=== PATIENT | male | born 1960 | race Caucasian/White ===

== ENCOUNTER 2017-01-21 18:19 | Emergency (ER) | payer MEDICAID ==
[~2017-01-21] VITALS: Ht 182.9 cm; Wt 81.0 kg
[2017-01-21 18:31] VITALS: BP 106/70
== END 2017-01-21 20:43 | disposition left against medical advice (07) ==
LOC: EMS 18:23
DX: R07.89 Other chest pain (principal); Z87.891 Personal history of nicotine dependence; Z53.21 Procedure and treatment not carried out due to patient leaving prior to being seen by health care provider
CPT/HCPCS: 93005

== ENCOUNTER → 2017-01-21 | Emergency (ER) | payer MEDICAID ==
[~2017-01-21] VITALS: Ht 182.9 cm; Wt 81.0 kg
[~2017-01-21] MED LIST: BUPR150T3 PO
[2017-01-21 18:12] VITALS: BP 106/70
== END | disposition home or self-care (01) ==
LOC: BV PSY EVL 17:40
DX: F99 Mental disorder, not otherwise specified (principal); Z53.21 Procedure and treatment not carried out due to patient leaving prior to being seen by health care provider

== ENCOUNTER 2017-01-23 11:54 | Inpatient (IN) | payer MEDICAID ==
[~2017-01-23] VITALS: Ht 182.9 cm; Wt 82.2 kg
[2017-01-23 16:30] VITALS: BP 147/85
[2017-01-23] MEDS ORDERED: LORazepam 2 MG TABLET PO PRN ×2 (17:15→18:15)
[2017-01-23] MEDS ORDERED: CYANOCOBALAMIN 1,000 MCG/ML VIAL IM ONE (18:15)
[2017-01-23 19:23] VITALS: BP 162/85
[2017-01-24] VITALS (7 sets, daily range): BP systolic 100–139; BP diastolic 55–89
[2017-01-24] MEDS: LORazepam 2 MG TABLET PO PRN (07:04)
[2017-01-24 07:52] LABS: BASOPHILS # (AUTO) 0.02 K/uL (0.00-0.20); BASOPHILS % (AUTO) 0.4 % (0.0-2.0); EOSINOPHILS # (AUTO) 0.32 K/uL (0.00-0.70); EOSINOPHILS % (AUTO) 5.23 % (1.0-6.0); HEMOGLOBIN 13.2 g/dL (13.5-17.5); LYMPHOCYTES # (AUTO) 1.9 K/uL (1.0-4.8); LYMPHOCYTES % (AUTO) 30.3 % (22.0-44.0); MEAN CORPUSCULAR HEMOGLOBIN 30.2 pg (26.0-34.0); MEAN CORPUSCULAR HGB CONC 33.9 G/dL (31.0-37.0); MEAN CORPUSCULAR VOLUME 89 fL (80-100); MONOCYTES # (AUTO) 0.5 K/uL (0.1-1.0); MONOCYTES % (AUTO) 7.9 % (2.0-9.0); NEUTROPHILS # (AUTO) 3.5 K/uL (1.8-7.7); NEUTROPHILS % (AUTO) 56.2 % (40.0-70.0); PLATELET COUNT (AUTO) 274 K/uL (150-450); RED BLOOD CELL COUNT(AUTO) 4.38 MIL/uL (4.50-5.90); WHITE BLOOD COUNT (AUTO) 6.2 K/uL (4.5-11.0)
[2017-01-24 08:02] LABS: HEMOGLOBIN A1C 5.1 % (4.5-6.2)
[2017-01-24 08:25] LABS: ALANINE AMINOTRANSFERASE 37 U/L (12-78); ALBUMIN 2.8 g/dL (3.4-5.0); ANION GAP 7 mmol/L (8-16); ASPARTATE AMINOTRANSFERASE 32 U/L (15-37); BILIRUBIN,TOTAL 0.9 mg/dL (0.1-1.0); CALCIUM, TOTAL 7.8 mg/dL (8.8-10.5); CARBON DIOXIDE 32 mmol/L (22-29); CHLORIDE 105 mmol/L (98-107); CHOL/HDL RATIO 2.8 (4.2-7.3); CREATININE 0.77 mg/dL (0.60-1.30); GLOMERULAR FILTR. RATE CALC > 60 mL/min (>60); POTASSIUM 3.4 mmol/L (3.5-5.1); SODIUM SERUM 144 mmol/L (136-145); UREA NITROGEN, BLOOD 18 mg/dL (7-18)
[2017-01-24] MEDS: MULTIVITAMINS WITH MINERALS, THERAPEUTIC TABLET PO SCH (09:11)
[2017-01-24] MEDS: FOLIC ACID 1 MG TABLET PO SCH (09:12)
[2017-01-24] MEDS: LORazepam 2 MG TABLET PO SCH ×5 (09:12→21:14)
[2017-01-24] MEDS: THIAMINE HCL 100 MG TABLET PO SCH (09:12)
[2017-01-24] MEDS ORDERED: POTASSIUM CHLORIDE 20 MEQ ER TABLET PO ONE (09:45)
[2017-01-24] MEDS ORDERED: CloNIDine HCL 0.1 MG TABLET PO PRN (09:45)
[2017-01-24] MEDS: ZOLPIDEM TARTRATE 10 MG TABLET PO PRN (21:14)
[2017-01-25 06:27] VITALS: BP 126/75
[2017-01-25 08:00] VITALS: BP 117/73
[2017-01-25 08:42] VITALS: BP 117/73
[2017-01-25] MEDS: PANTOPRAZOLE SODIUM 40 MG DR TABLET PO SCH (09:13)
[2017-01-25] MEDS: LORazepam 2 MG TABLET PO SCH ×4 (09:13→20:43)
[2017-01-25] MEDS: MULTIVITAMINS WITH MINERALS, THERAPEUTIC TABLET PO SCH (09:13)
[2017-01-25] MEDS: THIAMINE HCL 100 MG TABLET PO SCH (09:13)
[2017-01-25] MEDS: FOLIC ACID 1 MG TABLET PO SCH (09:13)
[2017-01-25 16:00] VITALS: BP 121/66
[2017-01-25 16:10] VITALS: BP 121/66
[2017-01-25] MEDS: ZOLPIDEM TARTRATE 10 MG TABLET PO PRN (20:43)
[2017-01-25] MEDS: LORazepam 2 MG TABLET PO PRN (23:29)
[2017-01-26] VITALS (7 sets, daily range): BP systolic 118–142; BP diastolic 69–87
[2017-01-26] MEDS ORDERED: LORazepam 1 MG TABLET PO PRN (07:00)
[2017-01-26 08:35] LABS: CHOL/HDL RATIO 2.7 (4.2-7.3); THYROID STIMULATING HORMONE 4.27 uIU/mL (0.36-3.74)
[2017-01-26] MEDS: THIAMINE HCL 100 MG TABLET PO SCH (08:38)
[2017-01-26] MEDS: MULTIVITAMINS WITH MINERALS, THERAPEUTIC TABLET PO SCH (08:38)
[2017-01-26] MEDS: LORazepam 1 MG TABLET PO SCH ×4 (08:38→22:21)
[2017-01-26] MEDS: FOLIC ACID 1 MG TABLET PO SCH (08:38)
[2017-01-26] MEDS: PANTOPRAZOLE SODIUM 40 MG DR TABLET PO SCH (08:38)
[2017-01-26] MEDS: ESCITALOPRAM OXALATE 10 MG TABLET PO SCH (11:17)
[2017-01-26] MEDS ORDERED: HYDROCODONE/ACETAMINOPHEN 5-325 MG TABLET PO ONE (16:30)
[2017-01-26] MEDS ORDERED: ESCI10TA PO (18:51)
[2017-01-27 06:24] VITALS: BP 125/84
[2017-01-27 06:25] VITALS: BP 125/84
[2017-01-27] MEDS ORDERED: LORazepam 1 MG TABLET PO PRN (07:00)
[2017-01-27 07:40] LABS: BASOPHILS % (AUTO) 0.4 % (0.0-2.0); EOSINOPHILS % (AUTO) 3.8 % (1.0-6.0); HEMATOCRIT 44.8 % (41-53); HEMOGLOBIN 14.6 g/dL (13.5-17.5); LYMPHOCYTES # (AUTO) 2.8 K/uL (1.0-4.8); LYMPHOCYTES % (AUTO) 32.5 % (22.0-44.0); MEAN CORPUSCULAR HEMOGLOBIN 29.4 pg (26.0-34.0); MEAN CORPUSCULAR HGB CONC 32.6 G/dL (31.0-37.0); MEAN CORPUSCULAR VOLUME 90 fL (80-100); MONOCYTES # (AUTO) 0.6 K/uL (0.1-1.0); MONOCYTES % (AUTO) 7.4 % (2.0-9.0); NEUTROPHILS # (AUTO) 4.8 K/uL (1.8-7.7); NEUTROPHILS % (AUTO) 55.9 % (40.0-70.0); PLATELET COUNT (AUTO) 303 K/uL (150-450); RED BLOOD CELL COUNT(AUTO) 4.97 MIL/uL (4.50-5.90); RED CELL DISTRIBUTION WIDTH 12.7 % (11.5-14.5); WHITE BLOOD COUNT (AUTO) 8.6 K/uL (4.5-11.0)
[2017-01-27 08:00] VITALS: BP 103/72
[2017-01-27 08:12] LABS: ALANINE AMINOTRANSFERASE 47 U/L (12-78); ALBUMIN 3.7 g/dL (3.4-5.0); ANION GAP 8 mmol/L (8-16); ASPARTATE AMINOTRANSFERASE 24 U/L (15-37); BILIRUBIN,TOTAL 0.7 mg/dL (0.1-1.0); CALCIUM, TOTAL 8.4 mg/dL (8.8-10.5); CARBON DIOXIDE 29 mmol/L (22-29); CHLORIDE 100 mmol/L (98-107); CREATININE 0.94 mg/dL (0.60-1.30); GLOMERULAR FILTR. RATE CALC > 60 mL/min (>60); POTASSIUM 4.2 mmol/L (3.5-5.1); SODIUM SERUM 137 mmol/L (136-145); THYROID STIMULATING HORMONE 3.81 uIU/mL (0.36-3.74); TOTAL PROTEIN, SERUM 7.1 g/dL (6.4-8.2); UREA NITROGEN, BLOOD 14 mg/dL (7-18)
[2017-01-27] MEDS: MULTIVITAMINS WITH MINERALS, THERAPEUTIC TABLET PO SCH (08:25)
[2017-01-27] MEDS: THIAMINE HCL 100 MG TABLET PO SCH (08:25)
[2017-01-27] MEDS: PANTOPRAZOLE SODIUM 40 MG DR TABLET PO SCH (08:25)
[2017-01-27] MEDS: FOLIC ACID 1 MG TABLET PO SCH (08:25)
[2017-01-27] MEDS: ESCITALOPRAM OXALATE 10 MG TABLET PO SCH (08:25)
[2017-01-27 09:21] VITALS: BP 103/72
[2017-01-27 09:25] LABS: APPEARANCE,URINE CLEAR (CLEAR); GLUCOSE, URINE (UA) NEGATIVE (NEGATIVE); KETONES,URINE NEGATIVE (NEGATIVE); LEUKOCYTE ESTERASE ,URINE NEGATIVE (NEGATIVE); OCCULT BLOOD,URINE NEGATIVE (NEGATIVE); PROTEIN,URINE NEGATIVE (NEGATIVE)
[2017-01-27 09:26] LABS: ADD UA MICROSCOPIC NO
[2017-01-27 12:20] LABS: HEPATITIS Bs ANTIGEN SCREEN P Negative (Negative); HEPATITIS C AB SCREEN <0.1 s/co ratio (0.0-0.9)
[2017-01-27 16:06] VITALS: BP 114/69
[2017-01-27 16:56] VITALS: BP 114/69
[2017-01-27] MEDS: ZOLPIDEM TARTRATE 10 MG TABLET PO PRN (20:35)
[2017-01-28 01:37] VITALS: BP_SYST 118; BP_SYST 143; BP_DIAS 82; BP_DIAS 87
[2017-01-28 07:02] VITALS: BP 118/82
[2017-01-28] MEDS: FOLIC ACID 1 MG TABLET PO SCH (08:17)
[2017-01-28] MEDS: MULTIVITAMINS WITH MINERALS, THERAPEUTIC TABLET PO SCH (08:17)
[2017-01-28] MEDS: THIAMINE HCL 100 MG TABLET PO SCH (08:17)
[2017-01-28] MEDS: ESCITALOPRAM OXALATE 10 MG TABLET PO SCH (08:17)
[2017-01-28] MEDS: PANTOPRAZOLE SODIUM 40 MG DR TABLET PO SCH (08:17)
[2017-01-28 08:18] LABS: THYROID STIMULATING HORMONE 1.97 uIU/mL (0.36-3.74)
[2017-01-28 08:40] VITALS: BP 128/64
[2017-01-28 14:46] VITALS: BP 128/84
[2017-01-28] MEDS: HYDROCODONE/ACETAMINOPHEN 5-325 MG TABLET PO PRN (14:48)
[2017-01-28 16:08] VITALS: BP 122/74
[2017-01-28] MEDS: ZOLPIDEM TARTRATE 10 MG TABLET PO PRN (20:40)
[2017-01-29 05:50] VITALS: BP_SYST 125; BP_SYST 135; BP_DIAS 75; BP_DIAS 95
[2017-01-29 08:07] VITALS: BP 116/66
[2017-01-29] MEDS: PANTOPRAZOLE SODIUM 40 MG DR TABLET PO SCH (08:56)
[2017-01-29] MEDS: ESCITALOPRAM OXALATE 10 MG TABLET PO SCH (08:56)
[2017-01-29] MEDS: THIAMINE HCL 100 MG TABLET PO SCH (08:56)
[2017-01-29] MEDS: FOLIC ACID 1 MG TABLET PO SCH (08:56)
[2017-01-29] MEDS: MULTIVITAMINS WITH MINERALS, THERAPEUTIC TABLET PO SCH (08:56)
[2017-01-29 16:15] VITALS: BP 130/68
[2017-01-29] MEDS: HYDROCODONE/ACETAMINOPHEN 5-325 MG TABLET PO PRN (16:18)
[2017-01-30 01:30] VITALS: BP 125/74
[2017-01-30] MEDS ORDERED: PANT40TA25 PO (08:22)
[2017-01-30] MEDS: THIAMINE HCL 100 MG TABLET PO SCH (08:38)
[2017-01-30] MEDS: FOLIC ACID 1 MG TABLET PO SCH (08:38)
[2017-01-30] MEDS: PANTOPRAZOLE SODIUM 40 MG DR TABLET PO SCH (08:38)
[2017-01-30] MEDS: MULTIVITAMINS WITH MINERALS, THERAPEUTIC TABLET PO SCH (08:38)
[2017-01-30] MEDS: ESCITALOPRAM OXALATE 10 MG TABLET PO SCH (08:38)
[2017-01-30 09:14] VITALS: BP 147/79
== END 2017-01-30 09:55 | disposition home or self-care (01) | DRG 751 ==
LOC: B3A 17:05 → EDSTATUS 17:11 → B2S 01-29 18:35
DX: F33.2 Major depressive disorder, recurrent severe without psychotic features (principal); R45.851 Suicidal ideations; D64.9 Anemia, unspecified; E87.6 Hypokalemia; C44.91 Basal cell carcinoma of skin, unspecified; F10.10 Alcohol abuse, uncomplicated; N43.3 Hydrocele, unspecified; Z79.899 Other long term (current) drug therapy; Z59.0 Homelessness; Z82.5 Family history of asthma and other chronic lower respiratory diseases; Z80.1 Family history of malignant neoplasm of trachea, bronchus and lung; Z82.3 Family history of stroke
CPT/HCPCS: 80074; 82306; 82607; 82746; 83036; 84439; 84443; 87081; J3420

== ENCOUNTER 2017-01-26 18:20 | Emergency (ER) | payer MEDICAID, OTHER ==
[~2017-01-26] VITALS: Ht 185.4 cm; Wt 84.0 kg
[2017-01-26] MEDS ORDERED: ESCI10TA PO (18:51)
[2017-01-26 19:30] LABS: BASOPHILS % (AUTO) 0.6 % (0.0-2.0); EOSINOPHILS % (AUTO) 3.9 % (1.0-6.0); HEMATOCRIT 43.9 % (41-53); HEMOGLOBIN 14.2 g/dL (13.5-17.5); LYMPHOCYTES # (AUTO) 2.3 K/uL (1.0-4.8); LYMPHOCYTES % (AUTO) 29.8 % (22.0-44.0); MEAN CORPUSCULAR HEMOGLOBIN 28.9 pg (26.0-34.0); MEAN CORPUSCULAR HGB CONC 32.4 G/dL (31.0-37.0); MEAN CORPUSCULAR VOLUME 89 fL (80-100); MONOCYTES # (AUTO) 0.6 K/uL (0.1-1.0); NEUTROPHILS # (AUTO) 4.5 K/uL (1.8-7.7); NEUTROPHILS % (AUTO) 57.7 % (40.0-70.0); PLATELET COUNT (AUTO) 319 K/uL (150-450); RED BLOOD CELL COUNT(AUTO) 4.93 MIL/uL (4.50-5.90); RED CELL DISTRIBUTION WIDTH 12.5 % (11.5-14.5); WHITE BLOOD COUNT (AUTO) 7.8 K/uL (4.5-11.0)
[2017-01-26 19:35] LABS: ANION GAP 9 mmol/L (8-16); CALCIUM, TOTAL 8.1 mg/dL (8.8-10.5); CARBON DIOXIDE 28 mmol/L (22-29); CHLORIDE 100 mmol/L (98-107); CREATININE 0.85 mg/dL (0.60-1.30); GLOMERULAR FILTR. RATE CALC > 60 mL/min (>60); POTASSIUM 4.5 mmol/L (3.5-5.1); SODIUM SERUM 137 mmol/L (136-145); UREA NITROGEN, BLOOD 14 mg/dL (7-18)
[2017-01-26 19:38] LABS: ALANINE AMINOTRANSFERASE 48 U/L (12-78); ALBUMIN 3.4 g/dL (3.4-5.0); ASPARTATE AMINOTRANSFERASE 24 U/L (15-37); BILIRUBIN,TOTAL 0.4 mg/dL (0.1-1.0); TOTAL PROTEIN, SERUM 7.3 g/dL (6.4-8.2)
[2017-01-26 21:03] LABS: ADD UA MICROSCOPIC NO; APPEARANCE,URINE CLEAR (CLEAR); GLUCOSE, URINE (UA) NEGATIVE (NEGATIVE); KETONES,URINE NEGATIVE (NEGATIVE); LEUKOCYTE ESTERASE ,URINE NEGATIVE (NEGATIVE); OCCULT BLOOD,URINE NEGATIVE (NEGATIVE); PROTEIN,URINE NEGATIVE (NEGATIVE)
[2017-01-26] MEDS ORDERED: HYDROCODONE/ACETAMINOPHEN 5-325 MG TABLET PO ONE (21:15)
[2017-01-26 21:33] VITALS: BP 129/73
== END 2017-01-26 21:52 | disposition home or self-care (01) ==
LOC: EMS 18:22
DX: N43.3 Hydrocele, unspecified (principal); F17.210 Nicotine dependence, cigarettes, uncomplicated; L72.9 Follicular cyst of the skin and subcutaneous tissue, unspecified
CPT/HCPCS: 76870; 99285; 99406

== ENCOUNTER 2017-05-09 15:58 | Inpatient (IN) | payer MEDICAID, OTHER ==
[~2017-05-09] VITALS: Ht 182.9 cm; Wt 88.9 kg
[~2017-05-09 15:58] MED LIST changes: -BUPR150T3 PO; +ESCI10TA PO; +PANT40TA25 PO
[2017-05-09] MEDS ORDERED: HALO5 PO (17:05)
[2017-05-09] MEDS ORDERED: CITA10TA68 PO (17:05)
[2017-05-09] MEDS ORDERED: RISP1 PO (17:05)
[2017-05-09 17:17] LABS: BASOPHILS % (AUTO) 0.4 % (0.0-2.0); EOSINOPHILS % (AUTO) 1.2 % (1.0-6.0); HEMATOCRIT 42.8 % (41-53); HEMOGLOBIN 14.6 g/dL (13.5-17.5); LYMPHOCYTES # (AUTO) 1.9 K/uL (1.0-4.8); MEAN CORPUSCULAR HEMOGLOBIN 29.8 pg (26.0-34.0); MEAN CORPUSCULAR HGB CONC 34.2 G/dL (31.0-37.0); MEAN CORPUSCULAR VOLUME 87 fL (80-100); MONOCYTES # (AUTO) 0.6 K/uL (0.1-1.0); MONOCYTES % (AUTO) 5.8 % (2.0-9.0); NEUTROPHILS # (AUTO) 7.9 K/uL (1.8-7.7); NEUTROPHILS % (AUTO) 74.6 % (40.0-70.0); PLATELET COUNT (AUTO) 354 K/uL (150-450); RED BLOOD CELL COUNT(AUTO) 4.91 MIL/uL (4.50-5.90); RED CELL DISTRIBUTION WIDTH 13.6 % (11.5-14.5); WHITE BLOOD COUNT (AUTO) 10.6 K/uL (4.5-11.0)
[2017-05-09] MEDS ORDERED: HALOPERIDOL 5 MG TABLET PO PRN (17:30)
[2017-05-09 17:40] LABS: ANION GAP 16 mmol/L (8-16); CALCIUM, TOTAL 8.5 mg/dL (8.8-10.5); CARBON DIOXIDE 24 mmol/L (22-29); CHLORIDE 102 mmol/L (98-107); GLOMERULAR FILTR. RATE CALC > 60 mL/min (>60); POTASSIUM 3.8 mmol/L (3.5-5.1); SODIUM SERUM 142 mmol/L (136-145); UREA NITROGEN, BLOOD 15 mg/dL (7-18)
[2017-05-09 17:45] LABS: ALANINE AMINOTRANSFERASE 34 U/L (12-78); ALBUMIN 3.9 g/dL (3.4-5.0); ASPARTATE AMINOTRANSFERASE 40 U/L (15-37); BILIRUBIN,TOTAL 0.9 mg/dL (0.1-1.0); TOTAL PROTEIN, SERUM 7.5 g/dL (6.4-8.2)
[2017-05-09 19:02] LABS: GLUCOSE,POINT OF CARE 97 MG/DL (70-110)
[2017-05-09] MEDS ORDERED: SODIUM CHLORIDE 0.9% 1,000 ML IV ONE (19:45)
[2017-05-09] MEDS ORDERED: MAGNESIUM SULFATE 2 GM, MVI, ADULT NO.1 WITH VIT K 10 ML, THIAMINE HCL 100 MG, FOLIC AC... IV ONE ×5 (19:45)
[2017-05-09] MEDS ORDERED: LORazepam 2 MG/ML VIAL IVP ONE (19:45)
[2017-05-09 21:10] VITALS: BP 153/91
[2017-05-09] MEDS: ZOLPIDEM TARTRATE 10 MG TABLET PO PRN (21:27)
[2017-05-09] MEDS ORDERED: PNEUMOCOCCAL VACCINE POLYVALENT 0.5 ML VIAL [PPSV23] IM ONE (21:45)
[2017-05-09 22:10] VITALS: BP 109/61
[2017-05-09 23:10] VITALS: BP 103/62
[2017-05-10] VITALS (7 sets, daily range): BP systolic 108–136; BP diastolic 62–81
[2017-05-10] MEDS: LORazepam 2 MG TABLET PO PRN (06:52)
[2017-05-10 08:37] LABS: CHOL/HDL RATIO 2.7 (4.2-7.3)
[2017-05-10] MEDS: ZOLPIDEM TARTRATE 10 MG TABLET PO PRN (20:38)
[2017-05-10] MEDS: HALOPERIDOL 5 MG TABLET PO SCH (20:38)
[2017-05-11 06:45] VITALS: BP 137/78
[2017-05-11 07:03] VITALS: BP 137/78
[2017-05-11] MEDS: CITALOPRAM HYDROBROMIDE 20 MG TABLET PO SCH (08:03)
[2017-05-11] MEDS: LORazepam 2 MG TABLET PO PRN ×2 (08:08→17:17)
[2017-05-11 08:31] VITALS: BP 132/84
[2017-05-11] MEDS ORDERED: LOPERAMIDE HCL 2 MG CAPSULE PO PRN (16:00)
[2017-05-11 16:40] VITALS: BP 140/85
[2017-05-11] MEDS: HALOPERIDOL 5 MG TABLET PO SCH (21:27)
[2017-05-12 06:38] VITALS: BP 120/64
[2017-05-12 08:16] VITALS: BP 118/65
[2017-05-12] MEDS: CITALOPRAM HYDROBROMIDE 20 MG TABLET PO SCH (08:46)
[2017-05-12] MEDS: LORazepam 2 MG TABLET PO PRN ×2 (09:09→15:59)
[2017-05-12 16:00] VITALS: BP 133/85
[2017-05-12] MEDS: HALOPERIDOL 5 MG TABLET PO SCH (20:12)
[2017-05-13] VITALS: BP 121/68
[2017-05-13 08:41] VITALS: BP 101/60
[2017-05-13] MEDS: CITALOPRAM HYDROBROMIDE 20 MG TABLET PO SCH (09:00)
[2017-05-13] MEDS: LORazepam 2 MG TABLET PO PRN (09:46)
== END 2017-05-13 11:05 | disposition home or self-care (01) | DRG 750 ==
LOC: EMS 16:00 → B2S 18:40
PROVIDERS: ADMIT Psychiatry & Neurology Psychiatry; ATTEND Psychiatry & Neurology Psychiatry
DX: F20.0 Paranoid schizophrenia (principal); R45.851 Suicidal ideations; F32.9 Major depressive disorder, single episode, unspecified; F10.20 Alcohol dependence, uncomplicated; F12.90 Cannabis use, unspecified, uncomplicated; F17.210 Nicotine dependence, cigarettes, uncomplicated; K52.9 Noninfective gastroenteritis and colitis, unspecified; Z85.828 Personal history of other malignant neoplasm of skin; Z71.6 Tobacco abuse counseling; Z28.21 Immunization not carried out because of patient refusal; Z79.899 Other long term (current) drug therapy; Z71.41 Alcohol abuse counseling and surveillance of alcoholic; Z71.51 Drug abuse counseling and surveillance of drug abuser; Z80.1 Family history of malignant neoplasm of trachea, bronchus and lung; Z82.3 Family history of stroke; Z83.6 Family history of other diseases of the respiratory system
CPT/HCPCS: 82962; 96365; 96375; 99285; G0480; J2060; J3411; J3475; J3490; J7030

== ENCOUNTER 2017-12-19 10:17 | Emergency (ER) | payer MEDICAID, OTHER ==
[~2017-12-19] VITALS: Ht 182.9 cm; Wt 84.1 kg
[~2017-12-19 10:17] MED LIST changes: +CITA10TA68 PO; -ESCI10TA PO; -PANT40TA25 PO; +RISP.5 PO
[2017-12-19] MEDS ORDERED: SODIUM CHLORIDE 0.9% 1,000 ML IV ONE (11:30)
[2017-12-19 11:47] LABS: EOSINOPHILS % (AUTO) 3.7 % (1.0-6.0); HEMATOCRIT 41.9 % (41-53); HEMOGLOBIN 14.6 g/dL (13.5-17.5); LYMPHOCYTES # (AUTO) 1.6 K/uL (1.0-4.8); MEAN CORPUSCULAR HEMOGLOBIN 30.8 pg (26.0-34.0); MEAN CORPUSCULAR HGB CONC 34.9 G/dL (31.0-37.0); MEAN CORPUSCULAR VOLUME 88 fL (80-100); MONOCYTES # (AUTO) 0.3 K/uL (0.1-1.0); MONOCYTES % (AUTO) 5.9 % (2.0-9.0); NEUTROPHILS # (AUTO) 3.5 K/uL (1.8-7.7); NEUTROPHILS % (AUTO) 61.4 % (40.0-70.0); PLATELET COUNT (AUTO) 326 K/uL (150-450); RED BLOOD CELL COUNT(AUTO) 4.75 MIL/uL (4.50-5.90); RED CELL DISTRIBUTION WIDTH 13.3 % (11.5-14.5)
[2017-12-19 12:00] LABS: ANION GAP 4 mmol/L (8-16); CALCIUM, TOTAL 8.5 mg/dL (8.8-10.5); CARBON DIOXIDE 29 mmol/L (22-29); CHLORIDE 104 mmol/L (98-107); CREATININE 0.74 mg/dL (0.60-1.30); GLOMERULAR FILTR. RATE CALC > 60 mL/min (>60); GLUCOSE,RANDOM 97 mg/dL (70-110); POTASSIUM 4.6 mmol/L (3.5-5.1); SODIUM SERUM 137 mmol/L (136-145); UREA NITROGEN, BLOOD 13 mg/dL (7-18)
[2017-12-19 12:15] LABS: ALANINE AMINOTRANSFERASE 31 U/L (12-78); ALBUMIN 3.4 g/dL (3.4-5.0); ALKALINE PHOSPHATASE 77 U/L (46-116); ASPARTATE AMINOTRANSFERASE 28 U/L (15-37); THYROID STIMULATING HORMONE 1.38 uIU/mL (0.36-3.74); TOTAL PROTEIN, SERUM 6.9 g/dL (6.4-8.2)
[2017-12-19 12:49] LABS: AMPHET/METH SCREEN,URINE NEGATIVE (NEGATIVE); BARBITURATE SCREEN, URINE POSITIVE (NEGATIVE); BENZODIAZEPINES SCREEN,URINE POSITIVE (NEGATIVE); CANNABINOID SCREEN,URINE POSITIVE (NEGATIVE); COCAINE SCREEN,URINE NEGATIVE (NEGATIVE); METHADONE SCREEN, URINE NEGATIVE (NEGATIVE); OPIATE SCREEN,URINE NEGATIVE (NEGATIVE)
[2017-12-19 12:50] LABS: PHENCYCLIDINE SCREEN,URINE NEGATIVE (NEGATIVE)
[2017-12-19 13:00] LABS: GLUCOSE, URINE (UA) NEGATIVE (NEGATIVE); KETONES,URINE NEGATIVE (NEGATIVE); LEUKOCYTE ESTERASE ,URINE NEGATIVE (NEGATIVE); NITRATE,URINE NEGATIVE (NEGATIVE); OCCULT BLOOD,URINE NEGATIVE (NEGATIVE); PH,URINE 7.5 (5.0-8.0); PROTEIN,URINE TRACE (NEGATIVE)
[2017-12-19] MEDS ORDERED: LORazepam 1 MG TABLET PO ONE (13:00)
[2017-12-19 13:03] LABS: APPEARANCE,URINE HAZY (CLEAR); BILIRUBIN,URINE PRELIM. POSITIVE (NEGATIVE)
[2017-12-19 13:07] VITALS: BP 142/97
== END 2017-12-19 13:22 | disposition home or self-care (01) ==
LOC: EMS 10:17
DX: F41.9 Anxiety disorder, unspecified (principal); R07.89 Other chest pain; F32.9 Major depressive disorder, single episode, unspecified; F20.9 Schizophrenia, unspecified; F10.20 Alcohol dependence, uncomplicated; F17.210 Nicotine dependence, cigarettes, uncomplicated; Z91.14 Patient's other noncompliance with medication regimen
CPT/HCPCS: 36415; 71045; 80053; 80307; 81003; 84443; 84484; 85025; 93005; 96360; 99285; 99406; G0480; J7030

== ENCOUNTER 2020-12-28 12:20 | Inpatient (IN) | payer MEDICAID, OTHER ==
[~2020-12-28] VITALS: Ht 182.9 cm; Wt 83.3 kg
[2020-12-28 12:58] LABS: COVID AG,FIA SOURCE NASOPHARYNGEAL
[2020-12-28 13:20] LABS: AMPHET/METH SCREEN,URINE NEGATIVE (NEGATIVE); BARBITURATE SCREEN, URINE NEGATIVE (NEGATIVE); BENZODIAZEPINES SCREEN,URINE NEGATIVE (NEGATIVE); CANNABINOID SCREEN,URINE NEGATIVE (NEGATIVE); COCAINE SCREEN,URINE NEGATIVE (NEGATIVE); METHADONE SCREEN, URINE NEGATIVE (NEGATIVE); OPIATE SCREEN,URINE NEGATIVE (NEGATIVE)
[2020-12-28 13:21] LABS: PHENCYCLIDINE SCREEN,URINE NEGATIVE (NEGATIVE)
[2020-12-28 13:27] LABS: BASOPHILS % (AUTO) 1.4 % (0.0-2.0); EOSINOPHILS % (AUTO) 2.3 % (1.0-6.0); HEMATOCRIT 47.8 % (41-53); HEMOGLOBIN 16.1 g/dL (13.5-17.5); LYMPHOCYTES # (AUTO) 2.6 K/uL (1.0-4.8); LYMPHOCYTES % (AUTO) 29.8 % (22.0-44.0); MEAN CORPUSCULAR HEMOGLOBIN 31.1 pg (26.0-34.0); MEAN CORPUSCULAR HGB CONC 33.7 G/dL (31.0-37.0); MEAN CORPUSCULAR VOLUME 92 fL (80-100); MONOCYTES # (AUTO) 0.3 K/uL (0.1-1.0); MONOCYTES % (AUTO) 3.4 % (2.0-9.0); NEUTROPHILS # (AUTO) 5.5 K/uL (1.8-7.7); NEUTROPHILS % (AUTO) 63.1 % (40.0-70.0); PLATELET COUNT (AUTO) 385 K/uL (150-450); RED BLOOD CELL COUNT(AUTO) 5.18 MIL/uL (4.50-5.90); RED CELL DISTRIBUTION WIDTH 14.3 % (11.5-14.5)
[2020-12-28 13:34] LABS: ANION GAP 9 mmol/L (8-16); CALCIUM, TOTAL 8.2 mg/dL (8.8-10.5); CARBON DIOXIDE 28 mmol/L (22-29); CHLORIDE 106 mmol/L (98-107); CREATININE 0.92 mg/dL (0.60-1.30); GLOMERULAR FILTR. RATE CALC > 60 mL/min (>60); GLUCOSE,RANDOM 91 mg/dL (70-110); POTASSIUM 3.9 mmol/L (3.5-5.1); SODIUM SERUM 143 mmol/L (136-145); UREA NITROGEN, BLOOD 12 mg/dL (7-18)
[2020-12-28 13:40] LABS: ALANINE AMINOTRANSFERASE 35 U/L (12-78); ALBUMIN 4.2 g/dL (3.4-5.0); ALKALINE PHOSPHATASE 89 U/L (46-116); ASPARTATE AMINOTRANSFERASE 27 U/L (15-37); BILIRUBIN,TOTAL 0.4 mg/dL (0.1-1.0); TOTAL PROTEIN, SERUM 8.3 g/dL (6.4-8.2)
[2020-12-28] MEDS ORDERED: LORazepam 2 MG TABLET PO PRN (20:15)
[2020-12-29] VITALS (10 sets, daily range): BP systolic 100–158; BP diastolic 54–97
[2020-12-29] MEDS: ZOLPIDEM TARTRATE 10 MG TABLET PO PRN (00:58)
[2020-12-29] MEDS: MULTIVITAMINS, THERAPEUTIC TABLET PO SCH (08:07)
[2020-12-29] MEDS: THIAMINE 100 MG TABLET PO SCH (08:07)
[2020-12-29] MEDS: LORazepam 2 MG TABLET PO SCH ×4 (08:07→21:16)
[2020-12-29] MEDS: FOLIC ACID 1 MG TABLET PO SCH (08:07)
[2020-12-29] MEDS: ARIPiprazole 10 MG TABLET PO SCH (12:23)
[2020-12-30] VITALS (9 sets, daily range): BP systolic 137–158; BP diastolic 81–107
[2020-12-30] MEDS: LORazepam 2 MG TABLET PO PRN ×2 (05:53→23:16)
[2020-12-30] MEDS: LORazepam 2 MG TABLET PO SCH ×4 (08:43→21:13)
[2020-12-30] MEDS: ARIPiprazole 10 MG TABLET PO SCH (08:43)
[2020-12-30] MEDS: THIAMINE 100 MG TABLET PO SCH (08:43)
[2020-12-30] MEDS: FOLIC ACID 1 MG TABLET PO SCH (08:44)
[2020-12-30] MEDS: MULTIVITAMINS, THERAPEUTIC TABLET PO SCH (08:44)
[2020-12-30] MEDS: QUEtiapine FUMARATE 100 MG TABLET PO PRN (23:16)
[2020-12-31 00:10] VITALS: BP 148/104
[2020-12-31] MEDS: ZOLPIDEM TARTRATE 10 MG TABLET PO PRN (00:15)
[2020-12-31 06:08] VITALS: BP 150/101
[2020-12-31] MEDS: QUEtiapine FUMARATE 100 MG TABLET PO PRN (06:10)
[2020-12-31] MEDS: LORazepam 2 MG TABLET PO PRN (06:10)
[2020-12-31 08:13] VITALS: BP 120/74
[2020-12-31] MEDS: LORazepam 1 MG TABLET PO SCH ×4 (08:48→20:56)
[2020-12-31] MEDS: MULTIVITAMINS, THERAPEUTIC TABLET PO SCH (08:48)
[2020-12-31] MEDS: FOLIC ACID 1 MG TABLET PO SCH (08:48)
[2020-12-31] MEDS: THIAMINE 100 MG TABLET PO SCH (08:48)
[2020-12-31] MEDS: ARIPiprazole 10 MG TABLET PO SCH (08:49)
[2020-12-31] MEDS: LORazepam 1 MG TABLET PO PRN (10:07)
[2020-12-31 16:18] VITALS: BP 151/88
[2020-12-31 20:13] VITALS: BP 149/85
[2021-01-01 03:37] VITALS: BP 158/104
[2021-01-01] MEDS: LORazepam 1 MG TABLET PO PRN ×2 (03:44→05:59)
[2021-01-01 04:37] VITALS: BP 148/96
[2021-01-01] MEDS ORDERED: LORazepam 1 MG TABLET PO PRN (07:00)
[2021-01-01] MEDS: MULTIVITAMINS, THERAPEUTIC TABLET PO SCH (07:50)
[2021-01-01] MEDS: ARIPiprazole 10 MG TABLET PO SCH (07:50)
[2021-01-01] MEDS: FOLIC ACID 1 MG TABLET PO SCH (07:50)
[2021-01-01] MEDS: THIAMINE 100 MG TABLET PO SCH (07:50)
[2021-01-01 08:23] VITALS: BP 123/81
[2021-01-01 16:26] VITALS: BP 128/81
[2021-01-01 20:13] VITALS: BP 138/82
[2021-01-02 05:52] VITALS: BP 141/72
[2021-01-02 08:05] VITALS: BP 142/58
[2021-01-02] MEDS: THIAMINE 100 MG TABLET PO SCH (08:18)
[2021-01-02] MEDS: FOLIC ACID 1 MG TABLET PO SCH (08:18)
[2021-01-02] MEDS: MULTIVITAMINS, THERAPEUTIC TABLET PO SCH (08:18)
[2021-01-02] MEDS: ARIPiprazole 10 MG TABLET PO SCH (08:18)
[2021-01-02] MEDS: QUEtiapine FUMARATE 100 MG TABLET PO PRN (15:58)
[2021-01-02 16:00] VITALS: BP 99/75
[2021-01-02 21:24] VITALS: BP 138/81
[2021-01-03 08:00] VITALS: BP 145/93
[2021-01-03] MEDS: MULTIVITAMINS, THERAPEUTIC TABLET PO SCH (08:48)
[2021-01-03] MEDS: FOLIC ACID 1 MG TABLET PO SCH (08:48)
[2021-01-03] MEDS: ARIPiprazole 10 MG TABLET PO SCH (08:48)
[2021-01-03] MEDS: THIAMINE 100 MG TABLET PO SCH (08:49)
[2021-01-03] MEDS ORDERED: ARIP10TA8 PO (10:38)
== END 2021-01-03 14:10 | disposition home or self-care (01) | DRG 750 ==
LOC: EMS 12:24 → UNDOADMIN 22:47 → 3EI 22:47
DX: F25.1 Schizoaffective disorder, depressive type (principal); R56.9 Unspecified convulsions; R45.851 Suicidal ideations; F10.20 Alcohol dependence, uncomplicated; F14.10 Cocaine abuse, uncomplicated; Y90.8 Blood alcohol level of 240 mg/100 ml or more; Z20.822 Contact with and (suspected) exposure to COVID-19; F41.9 Anxiety disorder, unspecified; Z79.899 Other long term (current) drug therapy
CPT/HCPCS: 87426; 99285; G0480

== ENCOUNTER 2021-06-04 13:53 | Inpatient (IN) | payer MEDICAID, OTHER ==
[~2021-06-04] VITALS: Ht 210.8 cm; Wt 84.2 kg
[~2021-06-04 13:53] MED LIST changes: +ARIP10TA38 PO; -CITA10TA68 PO; -RISP.5 PO
[2021-06-04] MEDS ORDERED: DIAZEPAM 5 MG TABLET PO ONE (17:45)
[2021-06-04 18:11] LABS: BASOPHILS % (AUTO) 1.1 % (0.0-2.0); EOSINOPHILS % (AUTO) 2.5 % (1.0-6.0); HEMATOCRIT 46.7 % (41-53); HEMOGLOBIN 15.5 g/dL (13.5-17.5); LYMPHOCYTES # (AUTO) 3.2 K/uL (1.0-4.8); LYMPHOCYTES % (AUTO) 28.9 % (22.0-44.0); MEAN CORPUSCULAR HEMOGLOBIN 30.1 pg (26.0-34.0); MEAN CORPUSCULAR HGB CONC 33.3 G/dL (31.0-37.0); MEAN CORPUSCULAR VOLUME 91 fL (80-100); MONOCYTES # (AUTO) 0.7 K/uL (0.1-1.0); MONOCYTES % (AUTO) 6.1 % (2.0-9.0); NEUTROPHILS # (AUTO) 6.9 K/uL (1.8-7.7); NEUTROPHILS % (AUTO) 61.4 % (40.0-70.0); PLATELET COUNT (AUTO) 404 K/uL (150-450); RED BLOOD CELL COUNT(AUTO) 5.15 MIL/uL (4.50-5.90); RED CELL DISTRIBUTION WIDTH 14.6 % (11.5-14.5)
[2021-06-04 18:27] LABS: ANION GAP 14 mmol/L (8-16); CARBON DIOXIDE 24 mmol/L (22-29); CHLORIDE 102 mmol/L (98-107); CREATININE 0.86 mg/dL (0.60-1.30); GLUCOSE,RANDOM 90 mg/dL (70-110); SODIUM SERUM 140 mmol/L (136-145); UREA NITROGEN, BLOOD 17 mg/dL (7-18)
[2021-06-04 18:28] LABS: CALCIUM, TOTAL 8.4 mg/dL (8.8-10.5); GLOMERULAR FILTR. RATE CALC > 60 mL/min (>60)
[2021-06-04] MEDS ORDERED: LORazepam 2 MG TABLET PO ONE (18:30)
[2021-06-04 18:33] LABS: ALANINE AMINOTRANSFERASE 42 U/L (12-78); ALBUMIN 4.1 g/dL (3.4-5.0); ALKALINE PHOSPHATASE 92 U/L (46-116); ASPARTATE AMINOTRANSFERASE 46 U/L (15-37); BILIRUBIN,TOTAL 0.5 mg/dL (0.1-1.0); TOTAL PROTEIN, SERUM 8.4 g/dL (6.4-8.2)
[2021-06-04 18:35] LABS: ACETAMINOPHEN < 2 mcg/mL (10-30)
[2021-06-04 18:40] LABS: SALICYLATE 1.7 mg/dL (2.8-20.0)
[2021-06-04 19:13] LABS: COVID AG,FIA SOURCE NASOPHARYNGEAL
[2021-06-04] MEDS ORDERED: ZOLPIDEM TARTRATE 10 MG TABLET PO PRN (20:15)
[2021-06-04] MEDS ORDERED: HALOPERIDOL 5 MG TABLET PO PRN (20:15)
[2021-06-04 21:30] VITALS: BP 136/96
[2021-06-04 21:48] VITALS: BP 136/96
[2021-06-04] MEDS ORDERED: DIAZEPAM 10 MG TABLET PO PRN (22:15)
[2021-06-04 22:36] VITALS: BP 122/84
[2021-06-04 23:21] VITALS: BP 118/80
[2021-06-05] VITALS (10 sets, daily range): BP systolic 134–152; BP diastolic 81–99
[2021-06-05 01:21] LABS: CHOL/HDL RATIO 2.7 (4.2-7.3); CHOLESTEROL 277 mg/dL (131-200); HDL CHOLESTEROL 104 mg/dL (40-60); LDL CHOL (CALC.) 155 mg/dL (0-130); TRIGLYCERIDES 90 mg/dL (15-150)
[2021-06-05] MEDS ORDERED: DIAZEPAM 10 MG TABLET PO PRN (07:00)
[2021-06-05] MEDS: DIAZEPAM 10 MG TABLET PO SCH ×4 (08:36→21:28)
[2021-06-05] MEDS ORDERED: ONDANSETRON HCL 4 MG TABLET PO PRN (09:00)
[2021-06-05] MEDS ORDERED: GuaiFENesin/D-METHORPHAN [SUGAR-FREE] 200-20MG/10 ML SYRUP UDCUP PO PRN (09:00)
[2021-06-05] MEDS ORDERED: LOPERAMIDE HCL 2 MG CAPSULE PO PRN (09:00)
[2021-06-05] MEDS ORDERED: ACETAMINOPHEN 325 MG TABLET PO PRN (09:00)
[2021-06-05] MEDS ORDERED: CloNIDine HCL 0.1 MG TABLET PO PRN (09:00)
[2021-06-05] MEDS ORDERED: IBUPROFEN 400 MG TABLET PO PRN (09:00)
[2021-06-05] MEDS ORDERED: PETROLATUM,WHITE 28 GM JELLY TP PRN (09:00)
[2021-06-05] MEDS ORDERED: ALBUTEROL SULFATE HFA 90 MCG/PUFF 8 GM INHALER IH PRN (09:00)
[2021-06-05] MEDS ORDERED: MAG HYDROX/AL HYDROX/SIMETH ES 30 ML SUSPENSION UDCUP PO PRN (09:00)
[2021-06-05] MEDS ORDERED: NICOTINE 14 MG/24 HOUR PATCH TD PRN (09:00)
[2021-06-05] MEDS ORDERED: MAGNESIUM HYDROXIDE SUSPENSION 30 ML UDCUP PO PRN (09:00)
[2021-06-05] MEDS ORDERED: DOCUSATE SODIUM 100 MG CAPSULE PO PRN (09:00)
[2021-06-05] MEDS: LORazepam 2 MG TABLET PO PRN ×2 (10:39→17:57)
[2021-06-05] MEDS: MIRTAZAPINE 15 MG TABLET PO SCH (21:27)
[2021-06-06] MEDS: DIAZEPAM 10 MG TABLET PO SCH ×4 (08:03→21:14)
[2021-06-06 09:40] VITALS: BP 133/90
[2021-06-06 09:44] VITALS: BP 130/90
[2021-06-06 18:00] VITALS: BP 132/88
[2021-06-06 18:03] VITALS: BP 132/88
[2021-06-06] MEDS: MIRTAZAPINE 15 MG TABLET PO SCH (21:14)
[2021-06-07] MEDS ORDERED: DIAZEPAM 5 MG TABLET PO PRN (07:00)
[2021-06-07] MEDS: DIAZEPAM 5 MG TABLET PO SCH ×4 (08:36→20:50)
[2021-06-07 08:50] VITALS: BP 144/90
[2021-06-07 16:18] VITALS: BP_SYST 135; BP_DIAS 95; BP_DIAS 98
[2021-06-07] MEDS: MIRTAZAPINE 15 MG TABLET PO SCH (20:50)
[2021-06-08] MEDS ORDERED: DIAZEPAM 5 MG TABLET PO PRN (07:00)
[2021-06-08 09:23] VITALS: BP 125/89
[2021-06-08] MEDS ORDERED: MIRT-89 PO (10:27)
== END 2021-06-08 13:00 | disposition home or self-care (01) | DRG 750 ==
LOC: EMS 13:53 → 3EI 20:30
PROVIDERS: ADMIT Psychiatry & Neurology Child & Adolescent Psychiatry; ATTEND Psychiatry & Neurology Child & Adolescent Psychiatry
DX: F25.1 Schizoaffective disorder, depressive type (principal); R45.851 Suicidal ideations; G40.909 Epilepsy, unspecified, not intractable, without status epilepticus; Y90.8 Blood alcohol level of 240 mg/100 ml or more; F41.9 Anxiety disorder, unspecified; F17.210 Nicotine dependence, cigarettes, uncomplicated; F19.10 Other psychoactive substance abuse, uncomplicated; Z20.822 Contact with and (suspected) exposure to COVID-19; D72.829 Elevated white blood cell count, unspecified; I10 Essential (primary) hypertension; F10.229 Alcohol dependence with intoxication, unspecified; Z71.6 Tobacco abuse counseling; Z71.41 Alcohol abuse counseling and surveillance of alcoholic; Z71.51 Drug abuse counseling and surveillance of drug abuser; Z85.828 Personal history of other malignant neoplasm of skin; Z91.19 Patient's noncompliance with other medical treatment and regimen
CPT/HCPCS: 80053; 80061; 85025; 93005; 99285; G0480; G0481; Q0162

== ENCOUNTER 2022-03-12 14:04 | Inpatient (IN) | payer MEDICAID, OTHER ==
[~2022-03-12] VITALS: Ht 182.9 cm; Wt 88.2 kg
[~2022-03-12 14:04] MED LIST changes: -ARIP10TA38 PO; +MIRT-89 PO
[2022-03-12] MEDS ORDERED: LORazepam 2 MG TABLET PO PRN (16:15)
[2022-03-12 17:10] LABS: BASOPHILS % (AUTO) 0.6 % (0.0-2.0); EOSINOPHILS % (AUTO) 2.2 % (1.0-6.0); HEMATOCRIT 40.7 % (41-53); HEMOGLOBIN 13.9 g/dL (13.5-17.5); LYMPHOCYTES # (AUTO) 2.9 K/uL (1.0-4.8); LYMPHOCYTES % (AUTO) 34.5 % (22.0-44.0); MEAN CORPUSCULAR HEMOGLOBIN 30.9 pg (26.0-34.0); MEAN CORPUSCULAR HGB CONC 34.1 G/dL (31.0-37.0); MEAN CORPUSCULAR VOLUME 91 fL (80-100); MONOCYTES # (AUTO) 0.4 K/uL (0.1-1.0); MONOCYTES % (AUTO) 4.6 % (2.0-9.0); NEUTROPHILS # (AUTO) 4.9 K/uL (1.8-7.7); NEUTROPHILS % (AUTO) 58.1 % (40.0-70.0); PLATELET COUNT (AUTO) 397 K/uL (150-450); RED BLOOD CELL COUNT(AUTO) 4.49 MIL/uL (4.50-5.90); RED CELL DISTRIBUTION WIDTH 15.1 % (11.5-14.5)
[2022-03-12 17:27] LABS: ANION GAP 11 mmol/L (8-16); CARBON DIOXIDE 29 mmol/L (22-29); CHLORIDE 103 mmol/L (98-107); CREATININE 0.86 mg/dL (0.60-1.30); GLUCOSE,RANDOM 122 mg/dL (70-110); POTASSIUM 3.6 mmol/L (3.5-5.1); SODIUM SERUM 143 mmol/L (136-145); UREA NITROGEN, BLOOD 11 mg/dL (7-18)
[2022-03-12 17:28] LABS: GLOMERULAR FILTR. RATE CALC > 60 mL/min (>60)
[2022-03-12 17:29] LABS: COVID AG,FIA SOURCE NASAL SWAB
[2022-03-12 17:32] LABS: ALANINE AMINOTRANSFERASE 27 U/L (12-78); ALBUMIN 3.5 g/dL (3.4-5.0); ALKALINE PHOSPHATASE 83 U/L (46-116); ASPARTATE AMINOTRANSFERASE 21 U/L (15-37); BILIRUBIN,TOTAL 0.2 mg/dL (0.1-1.0); TOTAL PROTEIN, SERUM 7.4 g/dL (6.4-8.2)
[2022-03-12 17:39] LABS: APPEARANCE,URINE CLEAR (CLEAR); BILIRUBIN,URINE NEGATIVE (NEGATIVE); GLUCOSE, URINE (UA) NEGATIVE (NEGATIVE); KETONES,URINE NEGATIVE (NEGATIVE); LEUKOCYTE ESTERASE ,URINE NEGATIVE (NEGATIVE); NITRATE,URINE NEGATIVE (NEGATIVE); OCCULT BLOOD,URINE NEGATIVE (NEGATIVE); PH,URINE 6.5 (5.0-8.0); PROTEIN,URINE NEGATIVE (NEGATIVE); UROBILINOGEN,URINE <=1.0 mg/dL (<=1.0)
[2022-03-12 17:45] LABS: AMPHET/METH SCREEN,URINE NEGATIVE (NEGATIVE); BARBITURATE SCREEN, URINE NEGATIVE (NEGATIVE); BENZODIAZEPINES SCREEN,URINE NEGATIVE (NEGATIVE); CANNABINOID SCREEN,URINE POSITIVE (NEGATIVE); COCAINE SCREEN,URINE NEGATIVE (NEGATIVE); METHADONE SCREEN, URINE NEGATIVE (NEGATIVE); OPIATE SCREEN,URINE NEGATIVE (NEGATIVE)
[2022-03-12 17:55] LABS: PHENCYCLIDINE SCREEN,URINE NEGATIVE (NEGATIVE)
[2022-03-12 21:01] VITALS: BP 158/96
[2022-03-12 22:00] VITALS: BP 140/92
[2022-03-12 23:00] VITALS: BP 156/94
[2022-03-12] MEDS ORDERED: ALBUTEROL SULFATE HFA 90 MCG/PUFF 8 GM INHALER IH PRN (23:45)
[2022-03-12] MEDS ORDERED: BENZOCAINE/MENTHOL LOZENGE PO PRN (23:45)
[2022-03-12] MEDS ORDERED: LOPERAMIDE HCL 2 MG CAPSULE PO PRN (23:45)
[2022-03-12] MEDS ORDERED: MAGNESIUM HYDROXIDE SUSPENSION 30 ML UDCUP PO PRN (23:45)
[2022-03-12] MEDS ORDERED: ACETAMINOPHEN 325 MG TABLET PO PRN (23:45)
[2022-03-12] MEDS ORDERED: ONDANSETRON HCL 4 MG TABLET PO PRN (23:45)
[2022-03-12] MEDS ORDERED: BACITRACIN 28 GM OINTMENT TP PRN (23:45)
[2022-03-12] MEDS ORDERED: DOCUSATE SODIUM 100 MG CAPSULE PO PRN (23:45)
[2022-03-12] MEDS ORDERED: OMEPRAZOLE 20 MG CAPSULE PO PRN (23:45)
[2022-03-12] MEDS ORDERED: IBUPROFEN 600 MG TABLET PO PRN (23:45)
[2022-03-12] MEDS ORDERED: PETROLATUM,WHITE 28 GM JELLY TP PRN (23:45)
[2022-03-12] MEDS ORDERED: MAG HYDROX/AL HYDROX/SIMETH ES 30 ML SUSPENSION UDCUP PO PRN (23:45)
[2022-03-13] VITALS (10 sets, daily range): BP systolic 110–190; BP diastolic 63–110
[2022-03-13] MEDS: CloNIDine HCL 0.1 MG TABLET PO PRN (05:05)
[2022-03-13] MEDS: HALOPERIDOL 5 MG TABLET PO PRN (10:42)
[2022-03-13] MEDS ORDERED: ChlordiazePOXIDE HCL 25 MG CAPSULE PO PRN (13:00)
[2022-03-14] VITALS (8 sets, daily range): BP systolic 128–151; BP diastolic 78–110
[2022-03-14] MEDS: CloNIDine HCL 0.1 MG TABLET PO PRN (03:22)
[2022-03-14] MEDS: ChlordiazePOXIDE HCL 25 MG CAPSULE PO SCH ×4 (08:24→20:34)
[2022-03-14] MEDS: HALOPERIDOL 5 MG TABLET PO PRN ×2 (08:24→17:02)
[2022-03-14] MEDS: ZOLPIDEM TARTRATE 10 MG TABLET PO PRN (20:34)
[2022-03-15 05:23] VITALS: BP 136/78
[2022-03-15 08:00] VITALS: BP 139/88
[2022-03-15] MEDS: ChlordiazePOXIDE HCL 25 MG CAPSULE PO SCH ×4 (08:26→20:04)
[2022-03-15] MEDS: HALOPERIDOL 5 MG TABLET PO PRN ×2 (08:26→16:49)
[2022-03-15] MEDS: ChlordiazePOXIDE HCL 25 MG CAPSULE PO PRN ×2 (10:29→15:02)
[2022-03-15 16:06] VITALS: BP 120/73
[2022-03-15] MEDS: ZOLPIDEM TARTRATE 10 MG TABLET PO PRN (20:05)
[2022-03-16 03:42] VITALS: BP 138/85
[2022-03-16] MEDS ORDERED: ChlordiazePOXIDE HCL 10 MG CAPSULE PO PRN (07:00)
[2022-03-16] MEDS ORDERED: ChlordiazePOXIDE HCL 10 MG CAPSULE PO SCH (09:00)
[2022-03-16 09:36] VITALS: BP 131/83
[2022-03-17] MEDS ORDERED: ChlordiazePOXIDE HCL 10 MG CAPSULE PO PRN (07:00)
== END 2022-03-16 13:16 | disposition home or self-care (01) | DRG 750 ==
LOC: EMS 14:04 → B3A 17:43
PROVIDERS: ADMIT Psychiatry & Neurology Psychiatry; ATTEND Psychiatry & Neurology Psychiatry
DX: F25.1 Schizoaffective disorder, depressive type (principal); R45.851 Suicidal ideations; Z91.19 Patient's noncompliance with other medical treatment and regimen; E78.5 Hyperlipidemia, unspecified; F10.229 Alcohol dependence with intoxication, unspecified; F14.90 Cocaine use, unspecified, uncomplicated; F41.9 Anxiety disorder, unspecified; Z20.822 Contact with and (suspected) exposure to COVID-19; G47.00 Insomnia, unspecified; I10 Essential (primary) hypertension; F19.10 Other psychoactive substance abuse, uncomplicated; K21.9 Gastro-esophageal reflux disease without esophagitis; Z72.0 Tobacco use; Z85.828 Personal history of other malignant neoplasm of skin
CPT/HCPCS: 80053; 81003; 85025; 99285; G0480